=== PATIENT | male | born 1990 | race African-American/Black ===

== ENCOUNTER 2018-02-14 10:06 | Outpatient (CLI) | payer OTHER ==
--- NOTE | 2018-02-14 14:06 | MRI ---
MRI LEFT MIDFOOT AND FOREFOOT: Date: 02-14-18 Provided Clinical History: Left foot pain status post injury. FINDINGS: The dorsal extensor and plantar flexor tendons demonstrate an intact MR appearance. Alignment appears anatomic. Joint spaces appear preserved. Regional marrow and muscular signal appear normal. There is a small focal area of noncircumscribed signal alteration present within the subcutaneous bonnie pose layer at the dorsum of the foot at the region of the patient injury is marked on skin surface by the technologist. This likely reflects a small area of bruising or hematoma. IMPRESSION: No evidence for internal derangement. POS: C
== END 2018-02-14 10:07 | disposition home or self-care (01) ==
LOC: TBSIIMAG 10:06
PROVIDERS: ATTEND Family Medicine
DX: S90.32XD Contusion of left foot, subsequent encounter (principal)